=== PATIENT | female | born 1990 ===

== ENCOUNTER 2024-08-13 11:19 | Inpatient (IN) | payer OTHER ==
[~2024-08-13] VITALS: Ht 160 cm; Wt 59.9 kg
[2024-08-13 13:15] LABS: RH POSITIVE
[2024-08-15] MEDS ORDERED: CLINDAMYCIN PHOSPHATE 150 MG/ML (900mg) ONE (12:59)
[2024-08-15] MEDS ORDERED: LIDOCAINE HCL 1%/EPINEPHRINE 20ML VIAL IJ ONE ×2 (14:24→15:00)
[2024-08-15] MEDS ORDERED: CLINDAMYCIN PHOSPHATE 150 MG/ML (900mg) IV ONE (15:00)
[2024-08-15] MEDS ORDERED: VISTASEAL DUAL APPICATOR 1 EACH APPL TOP ONE (15:40)
[2024-08-15] MEDS ORDERED: THROMBIN,HU/FIBRINOGEN/CALCIUM 10 ML SYRINGE TOP ONE (15:40)
[2024-08-15] MEDS ORDERED: CELECOXIB 200 MG CAPSULE PO STA (16:43)
[2024-08-15] MEDS ORDERED: RINGERS SOLUTION,LACTATED 1,000 ML IV SCH (17:00)
[2024-08-15] MEDS ORDERED: GABAPENTIN 100 MG CAPSULE PO SCH (17:00)
[2024-08-15] MEDS ORDERED: ONDANSETRON HCL 2 MG/ML VIAL IV SCH (18:00)
[2024-08-15] MEDS ORDERED: ACETAMINOPHEN 325 MG TABLET PO SCH (18:00)
[2024-08-15] MEDS ORDERED: GABAPENTIN 100 MG CAPSULE PO ONE (18:22)
[2024-08-15] MEDS ORDERED: CELECOXIB 200 MG CAPSULE PO ONE (18:22)
[2024-08-15] MEDS ORDERED: ACETAMINOPHEN 325 MG TABLET PO ONE (18:22)
[2024-08-15 18:35] LABS: HEMATOCRIT 38.1 % (36.0-45.00); HEMOGLOBIN 12.5 g/dL (12.0-15.00); MEAN CELL VOLUME 86.8 fL (80.00-100.00); MEAN CORPUSCULAR HEMOGLOBIN 28.5 pg (27.00-32.0); MEAN CORPUSCULAR HGB CONC 32.9 g/dl (32.0-36.0); PLATELET COUNT 209 K/uL (150-450); RED BLOOD COUNT 4.39 M/uL (4.00-6.00); RED CELL DISTRIBUTION WIDTH 13.4 % (11.5-14.5)
[2024-08-15 19:03] LABS: CALCIUM 8.8 mg/dL (8.5-10.1); CREATININE SERUM 0.58 mg/dL (0.55-1.02); GFR 121.25; POTASSIUM 3.88 mEq/L (3.5-5.1)
[2024-08-15] MEDS ORDERED: MORPHINE SULFATE 4 MG/ML VIAL IV ONE (19:15)
[2024-08-15 20:49] LABS: HEMATOCRIT 36.6 % (36.0-45.00); HEMOGLOBIN 11.7 g/dL (12.0-15.00); MEAN CELL VOLUME 86.8 fL (80.00-100.00); MEAN CORPUSCULAR HEMOGLOBIN 27.8 pg (27.00-32.0); PLATELET COUNT 189 K/uL (150-450); RED BLOOD COUNT 4.21 M/uL (4.00-6.00); RED CELL DISTRIBUTION WIDTH 13.3 % (11.5-14.5)
[2024-08-15 21:22] VITALS: BP 121/72; O2SAT 100
[2024-08-16 01:27] VITALS: BP 110/72; O2SAT 100
[2024-08-16 08:00] VITALS: BP 118/77; O2SAT 99
[2024-08-16 08:19] LABS: HEMATOCRIT 31.7 % (36.0-45.00); HEMOGLOBIN 10.6 g/dL (12.0-15.00); MEAN CELL VOLUME 86.8 fL (80.00-100.00); MEAN CORPUSCULAR HEMOGLOBIN 29.1 pg (27.00-32.0); MEAN CORPUSCULAR HGB CONC 33.5 g/dl (32.0-36.0); PLATELET COUNT 156 K/uL (150-450); RED BLOOD COUNT 3.66 M/uL (4.00-6.00); RED CELL DISTRIBUTION WIDTH 13.3 % (11.5-14.5)
[2024-08-16 09:04] LABS: CREATININE SERUM 0.46 mg/dL (0.55-1.02); GFR 158.44; POTASSIUM 4.09 mEq/L (3.5-5.1)
[2024-08-16 13:35] VITALS: BP 118/72; O2SAT 96
[2024-08-16 16:00] VITALS: BP 122/81; O2SAT 99
== END 2024-08-16 17:48 | disposition home or self-care (01) | DRG 743 ==
LOC: SURH 08-15 07:32 → O/R 08-15 07:32 → SURH 08-15 12:15
PROVIDERS: ADMIT Obstetrics & Gynecology Gynecology; ATTEND Obstetrics & Gynecology Gynecology
PROC: 0UT74ZZ Resection of Bilateral Fallopian Tubes, Percutaneous Endoscopic Approach (ICD-10-PCS; 2024-08-15)
PROC: 0UT24ZZ Resection of Bilateral Ovaries, Percutaneous Endoscopic Approach (ICD-10-PCS; 2024-08-15)
PROC: 0UT94ZZ Resection of Uterus, Percutaneous Endoscopic Approach (ICD-10-PCS; principal; 2024-08-15 12:15)
DX: D25.2 Subserosal leiomyoma of uterus (principal); N72 Inflammatory disease of cervix uteri; N94.5 Secondary dysmenorrhea